=== PATIENT | male | born 1975 | race Caucasian/White ===

== ENCOUNTER → 2016-07-29 | Outpatient (CLI) | payer BC | LOC: KOH-I 07:59 | DX: R79.9 Abnormal finding of blood chemistry, unspecified (principal); K76.0 Fatty (change of) liver, not elsewhere classified | CPT/HCPCS: 76705 ==

== ENCOUNTER → 2020-10-11 | Outpatient (CLI) | payer BC | LOC: RAD 15:37 | DX: M25.561 Pain in right knee (principal); M25.461 Effusion, right knee | CPT/HCPCS: 73564 ==